=== PATIENT | female | born 1990 | race Caucasian/White ===

== ENCOUNTER 2024-01-10 22:26 | Emergency (ER) | payer OTHER, SELFPAY | END 2024-01-10 22:45 | disposition home or self-care (01) | LOC: ED 22:39 | PROVIDERS: PCP Preventive Medicine Occupational Medicine | DX: Z04.9 Encounter for examination and observation for unspecified reason (principal) ==

== ENCOUNTER 2024-08-27 09:57 | Emergency (ER) | payer BC, SELFPAY ==
--- OUTSIDE RECORDS SUMMARY | 2024-08-27 09:59 | XMS_ITS | Clinical Summary ---
Author Organization [facility] Address [address] [place] [address] Care Team Providers Care Respiratory Care Faculty Name Role Phone Danielle Cui P.A.-C., M.S. Primary Care P eladio Source Comments Patient records contain information from all sites at [facility]. For routine questions regarding patient records, call [phone] during business hours, M-F 8:00 AM - 5:00 PM Central Time. Record requests for emergency care only can be directed to [phone] at any time.[facility] Allergies Active Allergy Reactions Criticality Noted Date Comments Crab Hives (Reselect Reaction) Medium 03/15/2018 Dextromethorphan Hallucinations,He adache,Nausea And Vomiting,Shortnes s of breath (Reselect Reaction),Other (see comments) High 07/27/2015 Heart palpitations Chills Heart palpitations Chills Heart palpitations Chills Heart palpitations Heart palpitations Heart palpitations Chills Heart palpitations Heart palpitations Chills Heart palpitations Patient reports feeling shaky and light headed while taking unknown cold medication. Diagnostic Aids, Otherwise Unspecified Anaphylaxis,Hives (Reselect Reaction) 08/01/2020 Ice/ Cold Gluten GI intolerance,Other (see comments) 10/05/2015 Medications * This document contains information received from the source organization and may not represent a complete record from that organization. EPINEPHrine (EPIPEN) 0.3 mg/0.3 mL injection syringe Inject 0.3 mg intramuscularl y. 8 Active ketoconazole (NIZORAL) 2 % shampoo Apply topically as directed. Apply twice weekly for 2-4 weeks and then as needed 120 mL 2 0 Active vits96/iron fum/folic ( vitamin-ferrous fumarate-FA) 27 mg iron- 800 mcg per tablet Take 1 tablet by mouth daily. Active FLUoxetine (PROzac) 20 mg capsuleIndicati ons:Anxiety,Obs essive Compulsive Disorder Take 3 capsules (60 mg total) by mouth daily. 90 capsule 11 4 10/22/19 25 Active acetaminophen-c odeine (TylenoL #2) 300-15 mg per tablet Take 1 tablet by mouth every 6 (six) hours as needed. 4 Active Active Problems Patient Care Coordination No te Formatting of this note migh t be different from the original. Delivery Plan: IOL scheduled for 10/28. Preadmission Covid test not needed because she had a +Covid test September 06. 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 Antepartum: Last pap: 03/19/2018 Rubella/Varicella status: Immune/immune HPV series complete: Qualify for aspirin: Rhogam: O+ Tdap: Done 08-07-2021 JLW Influenza Vaccine: none this season Covid Vaccine: x2; considering booster; portal message sent PHQ -9 - done 08/07/2021, repeat post 28 week labs - done - WNL = 108 GBS - done - 09/06/2021 - Repeat collected 10/04/2021 - No Growth Education: NOB - completed 03/29/2021 KMU Early- Mid - done 06/11/2021 MTT Late: Done 08-07-2021 JLW Delivery/: Genetic testing at delivery: DVT prophylaxis indicated: PP tests to be ordered: Problem Noted Date Diagnosed Date Section Delivery 10/27/2021 Overview (10/28/2021): The patient was admitted to the [facility] for induction of labor. Her was complicated by COVID-19. Her labor course was induced with vaginal cytotec and augmented with artificial rupture of membranes and IV pitocin, utilizing epidural anesthesia for pain management. Complications of labor included heart rate changes necessitating a section. She had a primary delivery, delivering a liveborn female with weight of . occurred: 10/28/2021 , 5:31 PM Both mother and baby were in stable condition at the conclusion of the procedure. When the patient met appropriate criteria, she was transferred to the floor. The remainder of her course was uncomplicated. She received her care at [facility]. Nausea And Vomiting 10/04/2021 Care And Lactating 05/18/2021 Anxiety 11/18/2018 Overview (10/29/2021): 10/29/21 On Prozac? 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 Growth at 19% and AC at 29% Diagnosed 09/04/21, EFW: 8th percentile, AC<2 percentile - Completed consult with Dr. Gray - Plan for weekly BPP + dopplers2 - Weekly NSTs at [facility] - Weekly provider visit - Growth scan Q3 weeks - Discussed likely delivery at 37 weeks, unless indicated earlier by dopplers or testing 32 Weeks Gestation 09/06/2021 10/15/2021 COVID-19 Infection 04/09/2021 2 Overview (05/15/2021): Received monoclonal antibodies 04/09/21 surveillance and delivery considerations ([facility] COVID 19 and : What Maternal Medicine Subspecialists Need to Know 12.3.21 update): - Advanced level anatomy sonography between 18-20 weeks gestation. - OB Division recommendation for serial growth US q 4 to 6 weeks beginning at 28 weeks. This will be ordered by the patient's primary OB provider. - [facility] OB Division recommendation for weekly surveillance beginning at 37 weeks. This will be ordered by the patient's primary OB provider. - [facility] OB Division recommendation for consideration of delivery at 39-40 weeks. - Plan for COVID booster 90 days after completion of monoclonal antibody therapy Complete Spontaneous 12/02/2019 12/13/2019 Overview (12/02/2019): 12/01: HCG 44 yesterday. Plan to repeat HCG on Thursday at 11 am. Immunizations Immunization Administration Dates Next Due H1N1 Nasal 02/27/2009 HPV, Unspecified 09/09/2019(Deferred: Other - had elsewhere) Influenza Split 01/15/2016,11/22/2014,12/23/2013 Influenza Whole 12/23/2013 Influenza, Injectable, Quadrivalent 06/06/2013 Influenza, Seasonal, Injectable 11/22/2014 Influenza, Unspecified 01/13/2017,01/11/2016 SARS-COV-2 (COVID-19) - PFIZ ER (Discontinued)(12 years or older) 04/17/2020,03/26/2020 Tdap 08/07/2021,04/28/2018 influenza trivalent high dos e (HD)(PF) 01/15/2016 influenza vaccine quad (FLUZONE/FLUARIX) (6 months and older)(PF) 01/08/2023,02/09/2022,01/04/2020,2018,01/12/2018 Family History Medical History Relation Name Comments No Known Problems Father Stroke Father's Brother Richard Colon cancer Maternal Grandfather Teto Cancer Maternal Grandmother Gestational diabetes Mother Maile Melanoma Mother Maile Osteoporosis Mother Maile Skin cancer Mother Maile Other Mother's Sister Mackenzie celiac disea se No Known Problems Paternal Grandfather No Known Problems Paternal Grandmother Alopecia Sister 1 Incompetent cervix Sister 1 No Known Problems Sister 2 No Known Problems Sister 3 Relation Name Status Comments Father Alive Father's Brother Richard Maternal Grandfather Teto Maternal Grandmother Mother Maile Alive Mother's Sister Mackenzie Paternal Grandfather Paternal Grandmother Sister 1 Alive Sister 2 Alive Sister 3 Alive Social History Tobacco Use Types Packs/Day Years Used Date Smoking Tobacco: Never Smokeless Tobacco: Never Tobacco Cessation:Counseling Given: Not Answered Alcohol Use Standard Drinks/Week Comments Not Currently 0 (1 standard drink = 0.6 oz pur e alcohol) [facility] Utilities Answer Date Recorded In the past 12 months has e electric, gas, oil, or water company threatened to shut off services in your home? No 08/12/2023 Humiliation, Afraid, Rape, and Kick questionnair e Answer Date Recorded Within the last year, have y ou been afraid of your partner or ex-partner? No 10/11/2021 Within the last year, have y ou been humiliated or emotionally abused in other ways by your partner or ex-partner? No Within the last year, have y ou been kicked, hit, slapped, or otherwise physically hurt by your partner or ex-partner? No 10/11/2021 Within the last year, have y ou been raped or forced to have any kind of sexual activity by your partner or ex-partner? No 10/11/2021 Social Connection and Isolat ion Panel [NHANES] Answer Date Recorded In a typical week, how many times do you talk on the phone with family, friends, or neighbors? More than three times a week 10/11/2021 How often do you get togethe r with friends or relatives? More than three times a week 10/11/2021 How often do you attend chur or methodist services? Patient declined 10/11/2021 Do you belong to any clubs o r organizations such as uatsdin groups, unions, fraternal or athletic groups, or school groups? Yes 10/11/2021 How often do you attend meet ings of the clubs or organizations you belong to? More than 4 times per year 10/11/2021 Are you , , di vorced, , never , or living with a partner? 10/11/2021 AUDIT-C Answer Date Recorded Q1: How often do you have a drink containing alc ohol? Never 10/11/2021 Average Number of Drinks Not on file 022 Frequency of Binge Drinking Not on file 09/14 Overall Financial Resource Strain (CARDIA) Answe r Date Recorded How hard is it for you to pa y for the very basics like food, housing, medical care, and heating? Not hard at all 10/11/2021 PHQ-2 Answer Date Recorded PHQ-2 Score 1 02/08/2024 [facility] - Occupational Stress Questionnaire Answer Date Recorded Do you feel stress - tense, restless, nervous, or anxious, or unable to sleep at night because your mind is troubled all the time - these days? To some extent 10/11/2021 Exercise Vital Sign Answer Date Recorde d On average, how many days pe r week do you engage in moderate to strenuous exercise (like a brisk walk)? 4 days 08/12/2023 On average, how many minutes do you engage in exercise at this level? 40 min 08/12/2023 Hunger Vital Sign Answer Date Recorded Within the past 12 months, y ou worried that your food would run out before you got the money to buy more. Never true 08/12/19 24 Within the past 12 months, t he food you bought just didn't last and you didn't have money to get more. Never true 08/12/2023 PRAPARE - Transportation Answer Date Re corded In the past 12 months, has l ack of transportation kept you from medical appointments or from getting medications? No 07/15 In the past 12 months, has l ack of transportation kept you from meetings, work, or from getting things needed for daily living? No 08/12/2023 Depression Answer Date Recor ded PHQ-9 Total Score (max 27) 3 02/07 Nutrition Answer Date Recorded On average, how many serving s of fruits and vegetables do you eat per day (serving size is equal to 1 cup or approximately the size of a tennis ball)? 3-5 08/12/2023 Dental Answer Date Recorded Dental: Regular Dentist Yes 05/23/19 21 Employment Answer Date Recorded Employment status Employed and actively working without restrictions 08/12/2023 Housing Stability Answer Date Recorded What is your living situation today? I have a [place] place to live 08/12/2023 Education Answer Date Recorded What is the highest level of school you have completed or the highest degree you have received? 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 on file Not on file Not on file Last Filed Vital Signs Vital Sign Reading Time Taken Comments Blood Pressure 97/67 12/11/2021 2:17 PM CDT Pulse 79 12/11/2021 2:17 PM CDT Temperature 36.6 C (97.8 F) 12/11/2021 2:17 PM CDT Respiratory Rate 15 10/31/2021 8:25 AM CDT Oxygen Saturation 95% 12/11/2021 2:17 PM CDT Inhaled Oxygen Concentration - - Weight 66.7 kg (147 lb 0.8 oz) 12/11/2021 2:05 P M CDT Height 162.5 cm (5' 3.98) 12/11/2021 2:05 PM CD T Body Mass Index 25.26 12/11/2021 2:05 PM CDT Plan of Treatment Health Maintenance Due Date Last Done Comments Hepatitis B Vaccines (1 of 3 - 19+ 3-dose series) 09/14/2011 COVID-19 Vaccine ( - 2023- season) 2023 04/17/2020, 03/26/2020 Influenza Vaccine (#1) 2023 3, 02/09/2022, 01/04/2020, Additional history exists Depression Screening (Annual PHQ-2) 03/16/2024 Cervical/Vaginal Cancer Screening 12/11/2024 12/11/2021, 12/11/2021, 03/19/2018, Additional history exists DTaP,Tdap,and Td Vaccines (3 - Td or Tdap) 08/08/2031 08/07/2021, 04/28/2018 HIV Screening Completed 05/01/2021 Hepatitis C Screening Completed 05/01/2021 HPV Vaccines Aged Out No longer eligi ble based on patient's age to complete this topic IPV Vaccines Aged Out No longer eligi ble based on patient's age to complete this topic Pneumococcal vaccine (0-49 years) Aged Out No longer eligible based on patient's age to complete this topic Procedures Procedure Name Priority Date/Time Associated Diagnosis Comments HPV WITH GENOTYPING, PCR, THINPREP Routine 12/11/2021 2:43 PM CDT HCV AB SCRN , S Routine 05/01/2021 9:18 AM MEAT CARRIER Encounter For Supervision Of Normal Unspecified Trimester HIV-1/-2 AG AND AB SCRN, PLASMA Routine 05/01/2021 9:18 AM MEAT CARRIER Encounter For Supervision Of Normal Unspecified Trimester from Last 3 Months or Most Recently Relevant to Health Maintenance Results * HPV with Genotyping, PCR, ThinPrep (12/11/2021 2:43 PM CDT) Specimen Source Thin Prep Vial, Cervix/Endoc ervix 12/13/2021 11:59 PM CDT DTL HPV High Risk type 16, PCR Negative Negative 12/13/2021 11:59 PM CDT DTL HPV High Risk type 18, PCR Negative Negative 12/13/2021 11:59 PM CDT DTL HPV other High Risk types, PCR Negative Negative 12/13/2021 11:59 PM CDT DTL Comment: The following Other High Risk HPV types were not detected: 31, 33, 35, 39, 45, 51, 52, 56, 58, 59, 66, and 68 This test was ordered in the context of a [facility] SOLAR SALES REPRESENTATIVE AND ASSESSOR Cytology case; this result should be interpreted within the context of the SOLAR SALES REPRESENTATIVE AND ASSESSOR cytology report. Varies 12/11/2021 2:43 PM CDT 12/12/2021 8:23 AM CDT us Jazmine Ledezma M.D., Ph.D. LAB MICROBIOLOGY - GENER AL ORDERABLES Final Result [facility] [address] [place] [address], [facility] DTL [facility] [address] [place] [address] * Hepatitis C Virus Antibody Screen (05/01/2021 9:18 AM MEAT CARRIER) HCV Ab Scrn , S Negative Negative 05/01/2021 1:32 PM MEAT CARRIER [facility] Comment:Noodsi-bi-mwazms rat io is <1.00. Blood (Blood, Venous) 05/01/2021 9:18 AM MEAT CARRIER 05/01/2021 12:21 PM MEAT CARRIER Georgia López M.D. LAB MICROBIOLOGY - BLOOD OR DERABLES Final Result Performing Organization Address [facility]/ZIP Co de Phone Number [facility] [address] [address] [facility] Dept. of Laboratory Medicine and Pathology [address] [place] [address] * HIV-1/-2 Ag and Ab Scrn, Plasma (05/01/2021 9:18 AM MEAT CARRIER) HIV-1/-2 Ag and Ab Scrn, P Negative Negative 05/01/2021 1:10 PM MEAT CARRIER [facility] Comment: Negative result does not rule out HIV infection. If exposure to HIV infection occurred <14 days ago, contact the laboratory to request addition of HIV-1 RNA detection / quantification test (HIVQN). Blood (Blood, Venous) 05/01/2021 9:18 AM MEAT CARRIER 05/01/2021 12:21 PM MEAT CARRIER Georgia López M.D. LAB MICROBIOLOGY - BLOOD OR DERABLES Final Result Performing Organization Address City/[facility]/ZIP Co de Phone Number [facility] [address] [address] [facility] Dept. of Laboratory Medicine and Pathology [address] [place] [id number] from Last 3 Months or Most Recently Relevant to Health Maintenance Insurance [facility] Advance Directives For more information, please contact: [phone] * Full Code (Latest Code Status on File) Date Activated Date Inactivated Comments 10/31/2021 7:54 AM 10/31/2021 4:41 PM Question Answer Comments Full Code: Not Discussed Due to: Not medically appropriate * Full Code Date Activated Date Inactivated Comments 09/06/2021 3:05 PM 09/07/2021 6:18 PM Question Answer Comments Full Code: Not Discussed Due to: Not medically appropriate Care Teams Respiratory Care Faculty Relationship Specialty Start Date End Date Danielle Cui P.A.-C., M.S. [address] [place] [id number] PCP - General Family Medicine 01/10/17
--- OUTSIDE RECORDS SUMMARY | 2024-08-27 09:59 | XMS_ITS | Clinical Summary ---
Author Organization [employer] [facility] [employer] [facility] Address [address] [place] [id number] Care Team Providers Care Cat Wagon Operator Name Role Phone Shay Kline MD Primary Care Provider [phone] Allergies Active Allergy Reactions Criticality Noted Date Comments Dextromethorphan Confusion,Dyspnea ,Hallucinations,H eadache,Nausea And Vomiting,Other - Describe In Comment Field,Respiratory Distress,Dizzines s High 07/27/2015 Heart palpitations Chills Heart palpitations Chills Heart palpitations Heart palpitations Heart palpitations Chills Heart palpitations Heart palpitations Chills Heart palpitations Patient reports feeling shaky and light headed while taking unknown cold medication. Diagnostic Aids, Otherwise Unspecified Anaphylaxis,Hives High 08/01/2020 Ice/ Cold Gluten *Unknown,GI Upset,Nausea Only,Other - Describe In Comment Field Medium 10/09/2014 Stomach issues Shellfish Containing Products Hives High 03/15/2018 Medications FLUoxetine (PROZAC) 20 mg capsule Take 60 mg by mouth. 4 10/22/19 25 Active multivitamin () 27 mg iron- 800 mcg folic Take 1 Tablet by mouth once daily. Active cholecalciferol, Vitamin D3, (Vitamin D-3) 5,000 unit tab tablet Take by mouth once daily. Active ferrous sulfate 325 mg delayed release tabletIndications: Anemia, unspecified type Take 1 Tablet (325 mg) by mouth once daily. 5 Active promethazine 25 mg tabletIndications: Nausea and vomiting during (HC) Take 1 Tablet (25 mg) by mouth every 6 hours if needed for Nausea/Vomi ting. 60 Tablet 5 Active medication order composer Vitamin B6 Active ondansetron 4 mg disintegrating tabletIndications: Nausea and vomiting during (HC) Place 1 Tablet (4 mg) on the tongue every 8 hours if needed for Nausea/Vomi ting. 30 Tablet 5 08/17/19 25 Discontin ued(*Pura ent states no longer taking) Active Problems Problem Noted Date Diagnosed Date Encntr for suprvsn of normal preg, unsp, first t rimester 07/28/2024 Overview (08/25/2024): Primary OB: Screening: Panorama- would like 10w3d, AFP [ ]. Considering carrier screening. 20 wk US: GCT: Problems: Hcgs early on, US 7-8 weeks, 08/02 with f/u 08/03 N&V, vomiting 5-10 times a day, zofran, promethazine. Last threw up all 9 months, was passing out. Feeling better the last 2 days- less vomiting, kept entire dinner down. Intake placed homecare for IV fluids. G1: IUGR and 2nd tri bleeding,/contractions, resolved over night, no further concerns. Of note: sister needed cerclage x2 d/t hx PTB 23 wk Previous x 1: Indication for C/S: emergency CS intolerance. Op note reviewed by surgeon [ ] and confirmed LST. [ ]Delivery plan RCS desired [ ]TOLAC/CS consent given for review [ ] salpingectomy if CS discussed (If hx classical CS [ ] delivery between 36w0d to 37w0d) (If >/= 4 prior CS, early delivery is not recommended. Consider consult with MPP, if considering earlier delivery.) Hx benign nodule on thyroid, never on medications, checks yearly, unsure last. TSH ___ Hx anxiety/OCD, Dr. Mccartney, psychiatrist. Planning to wean prozac to 40 mg. Check in ___, feeling her anxiety will be better after the first US. No therapist. Hx PCOS, Early DM screening: [ ] HgA1c at intake. If <5.7%, do 1hr GCT at 28w. If >/=6.5%, manage as T2DM. If >/= 5.7% but <6.5%, then check fasting glucose >> If <95, do 1hr GCT at 28w. If >/=95 but <126, do 3hr GTT at 28w. If >/=126, then manage as T2DM. If history of GDMA2 in prior [ ] consider 1hr GCT at 20w labs completed - check at 16wks [ ] Needs T&S [ ] Maternal Vaccination: COVID-19 [ ], Flu [ ], RSV [ ] RN- preop/PACU Cervical cancer screening 05/10/2024 Overview (05/10/2024): 04/2024 NIL/HPV negative Plan: HPV based testing in 5 years Anxiety 11/18/2018 Overview (07/28/2024): 10/29/21 On Prozac? Celiac disease 04/03/2016 H/O multiple concussions 05/23/2015 Overview (07/28/2024): Concussions x3 secondary to soccer Rash 11/29/2014 Overview (07/28/2024): See note from 11/29/14 Obsessive-compulsive disorder 04/24/2014 Estimated Date of Delivery Comme nts Yes 03/14/2025 Based on last me nstrual period of 06/07/2024 (Exact Date) Encounters Date Type Department Care Team Description 08/25/2024 11:45 AM CDT Phone Office Visit [facility] [address] [place] [address] Gina Jensen NP Follow Up (OB US f/u) 08/25/2024 Travel 08/24/2024 1:45 PM CDT Ancillary Procedure [facility] [address] [facility] [address] [place] [address] Arrived 08/24/2024 Telephone [facility] [phone] Rach Mack NP Lab (Test cancellation) 08/23/2024 1:00 PM CDT OB Encounter [facility] [address] [facility] [address] [place] [address] Gina Jensen NP Care (11w0d) 08/23/2024 Travel 08/16/2024 11:15 AM CDT OB Encounter [facility] [address] [place] [address] Mari Back MD Care (10w0d) 08/16/2024 Travel 08/15/2024 Telephone [facility] [address] [facility] [address] [place] [address] Rima Reeves PA Abdominal Pain 08/15/2024 Nurse Triage [facility] [address] [facility] [address] [place] [address] Mari Maloney NP 08/13/2024 Nurse Triage [facility] [address] [facility] [address] [place] [address] Mari Maloney NP 08/03/2024 9:30 AM CDT Phone Office Visit [facility] [address] [address] Mari Maloney NP Care (7w4d) 08/03/2024 OB Encounter [facility] [address] [facility] [address] [place] [address] Mari Maloney NP Abstract (Ultrasound update ) 08/03/2024 Telephone [facility] [address] [address] Mari Maloney NP Appointment (Lab only appt) 08/02/2024 3:15 PM CDT Ancillary Procedure [facility] [address] [facility] [address] [place] [address] 08/02/2024 Travel 07/29/2024 Patient Outreach [facility] [address] [facility] [address] [place] [phone] Kierra Sesay RN [facility] (Orders for PIV hydration received ) 07/28/2024 11:00 AM CDT Phone OB Encounter [facility] [address] [place] [address] [address] [place] [address] Rach Mack NP Confirmation ( Intake Phone) 07/28/2024 Orders Only [facility] [address] [place] [address] [address] [place] [address] Rach Mack NP Hyperemesis 07/15/2024 2:15 PM CDT Phone Office Visit [facility] [address] [place] [address] [address] [place] [address] Idalia Butler NP Results ( test results) 07/14/2024 3:35 PM CDT Office Visit [facility] [address] [facility] [address] [place] [address] Trisha Corley MD Throat Problem; Sinus Problem 07/14/2024 11:40 AM CDT Orders Only [facility] [address] [facility] [address] [place] [address] Lab 07/14/2024 Travel 07/12/2024 3:00 PM CDT Orders Only [facility] [address] [facility] [address] [place] [address] Lab 07/12/2024 Travel 07/01/2024 9:23 AM CDT - 07/01/2024 11:59 PM CDT Hospital Encounter Les Anthony MD 07/01/2024 Orders Only [facility] [address] [facility] [address] [place] [address] Les Anthony MD <No scans attached> 07/01/2024 Surgery [facility] [id number] [place] [address] Les Anthony MD LEFT RING FINGER MASS EXCISION 06/01/2024 Transcribe Orders [facility] [place] [address] [place] [address] Les Anthony MD from Last 3 Months Immunizations Immunization Administration Dates Next Due Human Papilloma Virus Vaccin e, Unspecified 09/09/2019(Deferred: Patient Refused) Influenza A (H1N1), Live Intranasal 02/27/2009 Influenza Virus, Unspecified 01/13/2017,01/11/20 16 Influenza, High-dose Inactivated 01/15/2016 Influenza, IIV3 (Age >=3 years) 11/22/2014 Influenza, IIV4 01/08/2023,,01/04/2020,2018,01/12/2018 Influenza, IIV4 (=>6mos) MDV 06/06/2013 Influenza, Whole Virus 12/23/2013 Influenza, split (incl. fahad fied surface antigen) 01/15/2016,11/22/2014,12/23/2013 Td (Age >=7 Years) 03/19/2018(Deferred: Patient Refused) Tdap 08/07/2021,04/28/2018 Family History Medical History Relation Name Comments Cancer-colon Maternal Grandfather Melanoma Mother Diabetes Other 1 Uncle Stroke Other 2 Uncle Incompetent cervix Sister Relation Name Status Comments Maternal Grandfather Mother Other 1 Other 2 Sister Social History Tobacco Use Types Packs/Day Years Used Date Smoking Tobacco: Never Passive Smoke Exposure: Never Tobacco Cessation:Counseling Given: Not Answered Alcohol Use Standard Drinks/Week Comments Not Currently 4 (1 standard drink = 0.6 oz pur e alcohol) PHQ-2 Answer Date Recorded PHQ-2 TOTAL SCORE 2 08/23/2024 Social Connections Answer Date Recorded Do you often feel lonely or isolated from those around you? 0 11/04/2023 Financial Resource Strain Answer Date R ecorded Difficulty of Paying Living Expenses 3 04/16/2024 Difficulty of Paying Living Expenses Not on file 04/16/2024 Food Insecurity Answer Date Recorded Do you worry your food will run out before you are able to buy more? 1 11/04/2023 Transportation Needs Answer Date Record ed Does lack of transportation keep you from medica l appointments? 1 11/04/2023 Does lack of transportation keep you from work, meetings or getting things that you need? 1 11/04/2023 Housing Stability Answer Date Recorded What is your housing situation today? 1 11/04/2023 Utilities Answer Date Recorded Do you have trouble paying f or utilities (for example, heat, electricity, water, phone)? 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 Delivery Location:[facility] ([facility] 03 3 L&D) Current Comments OP note reviewed Low transve rse noted Summary Episode Dates Number of Fetuses Estimated Date of Delivery 07/28/2024 - Present (08/27/2024) 03/14/2025 (set by Mari Maloney NP on 08/03/2024 based on Last Menstrual Period on 06/07/2024 (Exact Date)) Dating Summary Based On EVER GA Diff Last Menstrual Period on 06/07/2024 (Exact Date) 03/14/2025 Working Ultrasound on 08/02/2024 03/18/2025 -4d GA:7w3d Alternate EVER Entry 03/18/2025 -4d Comment:Date entered prior t o episode creation Vitals Pregravid Weight Height TWG (As of 08/27/2024) Pregrav id BMI 68.9 kg (152 lb) 4.63 kg (10 lb 3.2 oz) Notes Progress Notes - OB Encounte r - 08/23/2024 - GA:11w0d 08/23/2024 - 11w0d - Gina Reese NP 11w0d Feeling well. Here today for FHT check and lab work. Patient has celiac disease and was exposed to gluten on Thursday night. Had significant GI upset, including bad stomach pains and diarrhea. Reported some brown vaginal spotting last week with wiping. She also noticed brighter red spotting after intercourse. She has not had any bleeding in 4-5 days. BSUS confirms FHT today. Counseled and desires Panorama- labs drawn today. Plan repeat viability US in the setting of prolonged spotting. Gina Jensen NP .................... 08/23/2024 1:59 PM Progress Notes - OB Encounte r - 08/16/2024 - GA:10w0d 08/16/2024 - wd - Mari Back MD 10w0d Longstanding celiac since first grade. Exposed to gluten at a restaurant - significant abdominal pain since Thursday night. Helped with heating pad. Brown spotting. Limited bedside US confirms cardiac activity and movement. Progress Notes - OB Encounte r - 08/03/2024 - GA:8w1d 08/03/2024 - 8w1d - Mari Robertson NP Ultrasound dating update. Mari Maloney NP .................... 08/03/2024 10:01 AM Progress Notes - Phone OB En counter - 07/28/2024 - GA:7w2d 07/28/2024 - 7w2d - Rach Mack NP History & Physical - Confirmation - TELEPHONE VISIT HPI: Jenny Steel is a 33 y.o. female, called today and phone visit performed for intake. Patient's last menstrual period was 06/07/2024 (exact date). Menses were mostly regular- 30 days Symptoms: n&v (see above), increase in discharge. Denies bleeding. Since her LMP she has used vit D, prozac, iron, PNV (does not have iron in it) Has not used zofran Denies recent travel to any areas affected by the zika virus. History of varicella or vaccine: had chicken pox Dating: Patient's last menstrual period was 06/07/2024 (exact date). Dating ultrasound ordered. Gestational age today is 6w5d, Estimated Date of Delivery: 03/18/25. Testing: Genetic Risks noted on intake form: Yes- Planned: Cystic Fibrosis and SMA carrier testing were discussed and she is considering them. Aneuploidy risk and testing options were discussed and she would like to proceed with the following tests: Panorama and AFP -Panorama, AFP Risk Factors: Primary OB: Screening: Panorama- would like 10w3d, AFP [ ]. Considering carrier screening. 20 wk US: GCT: Problems: Hcgs early on, US 7-8 weeks, 08/02 with f/u 08/03 N&V, vomiting 5-10 times a day, zofran, promethazine. Last threw up all 9 months, was passing out. Feeling better the last 2 days- less vomiting, kept entire dinner down. Intake placed homecare for IV fluids. G1: IUGR and 2nd tri bleeding,/contractions, resolved over night, no further concerns. Of note: sister needed cerclage x2 d/t hx PTB 23 wk Previous x 1: Indication for C/S: emergency CS intolerance. Op note reviewed by surgeon [ ] and confirmed LST. [ ]Delivery plan RCS desired [ ]TOLAC/CS consent given for review [ ] salpingectomy if CS discussed (If hx classical CS [ ] delivery between 36w0d to 37w0d) (If >/= 4 prior CS, early delivery is not recommended. Consider consult with MPP, if considering earlier delivery.) Hx benign nodule on thyroid, never on medications, checks yearly, unsure last. TSH ___ Hx anxiety/OCD, Dr. Mccartney, psychiatrist. Planning to wean prozac to 40 mg. Check in ___ . No therapist. Hx PCOS, Early DM screening: [ ] HgA1c at intake. If <5.7%, do 1hr GCT at 28w. If >/=6.5%, manage as T2DM. If >/= 5.7% but <6.5%, then check fasting glucose >> If <95, do 1hr GCT at 28w. If >/=95 but <126, do 3hr GTT at 28w. If >/=126, then manage as T2DM. If history of GDMA2 in prior [ ] consider 1hr GCT at 20w labs completed - check at 16wks [ ] Maternal Vaccination: COVID-19 [ ], Flu [ ], RSV [ ] RN- preop/PACU OB History Para Term AB Living 3 1 1 0 1 1 SAB IAB Ectopic Multiple Live Births 1 0 0 1 # Outcome Date GA Lbr Monico/2nd Weight Sex Type Anes PTL Lv 3 Current 2 Term 10/28/21 39w4d 2.86 kg (6 lb 4.9 oz) F CS-LTranv EPI AISHWARYA 1 SAB 12/04/19 5w0d FD Comments: Early biochemical loss Obstetric Comments OP note reviewed Low transverse noted ACTIVE PROBLEMS: Patient Active Problem List Diagnosis Code Cervical cancer screening Z12.4 PAST MEDICAL HISTORY: Past Medical History: . Date Anxiety Broken bones 03/16/2000 Celiac disease (HC) Chickenpox 03/16/1999 Dysmenorrhea 10/11/2012 low back pain Neck pain related to soccer PCOS (polycystic ovarian syndrome) 2019 PAST SURGICAL HISTORY: Past Surgical History: . Laterality Date KNEE SURGERY 03/16/2008 [facility]ria LEG SURGERY [facility] THYROID SURGERY 03/16/2006 benign nodule was [facility] IMMUNIZATIONS: Immunization History Administered Date(s) Administered COVID-19 vaccine ([facility] 30mcg/0.3mL) PF, MDV 03/26/2020, 04/17/2020 Influenza A (H1N1), Live Intranasal 02/27/2009 Influenza Virus, Unspecified 01/11/2016, 01/13/2017 Influenza, High-dose Inactivated 01/15/2016 Influenza, IIV3 (Age >=3 years) 11/22/2014 Influenza, IIV4 01/12/2018, 01/10/2019, 01/04/2020, 02/08/2022, 01/08/2023 Influenza, IIV4 (=>6mos) MDV 06/06/2013 Influenza, Whole Virus 12/23/2013 Influenza, split (incl. purified surface antigen) 12/23/2013, 11/22/2014, 01/15/2016 Tdap 04/28/2018, 08/07/2021 CURRENT MEDICATIONS: Current Outpatient Medications Medication Sig Dispense Refill cholecalciferol, Vitamin D3, (Vitamin D-3) 5,000 unit tab tablet Take by mouth once daily. ferrous sulfate 325 mg delayed release tablet Take 1 Tablet (325 mg) by mouth once daily. FLUoxetine (PROZAC) 20 mg capsule Take 60 mg by mouth. ondansetron [address] 1 Tablet (4 mg) on the tongue every 8 hours if needed for Nausea/Vomiting. 30 Tablet 0 multivitamin () 27 mg iron- 800 mcg folic Take 1 Tablet by mouth once daily. promethazine 25 mg tablet Take 1 Tablet (25 mg) by mouth every 6 hours if needed for Nausea/Vomiting. 60 Tablet 0 No current facility-administered medications for this visit. Medications have been reviewed by me and are current to the best of my knowledge and ability. 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 OBJECTIVE: No vitals or exam required for Telephone Visit. Patient talking easily and coherently in full sentences with no labored breathing ASSESSMENT/PLAN: ICD-10-CM 1. Encounter for supervision of normal first , first trimester (HC) Z34.01 TSH WITH REFLEX ANTI HIV 1/2 CBC W PLT NO DIFF HBSAG (HBS) ANTI HCV RUBELLA IMMUNE STATUS TREPONEMA PALLIDUM TYPE & SCREEN URINE CULTURE HEMOGLOBIN A1C 2. Nausea and vomiting during (HC) O21.9 AMB CONSULT TO OB HOME CARE/MOTHER Patient's BMI: 26. Recommended wt gain in lbs: 15-25. --Resources will be given to patient at next visit. Discussed [employer] nai available for download to smart phone or tablet. --Reviewed topics including diet, exercise, caffeine intake, handling of cat litter, toxic substances, daily vitamins, safe medications, child classes, and regular exams. --Discussed genetic screening options - considering and advised to check coverage. --Discussed care with [facility] and delivery at [facility]. Plan to schedule ultrasound and Initial OB visit with MD at 12 weeks gestation. She was encouraged to call the office with any questions or concerns. Hgb ELP not indicated Baseline preeclampsia labs not indicated Medications: ASA for preeclampsia prophylaxis not indicated Early a1c indicated Rach Mack NP .................... 07/28/2024 11:01 AM As the provider for this telephone service, I attest that I introduced myself to the patient, provided my credentials, disclosed my location, and determine that based on a review of the patient's chart and/or discussion with members of the patient's treatment team, a telephone visit is an appropriate and effective means of providing this service. The patient and I mutually agree that this visit is appropriate for the telephone as well. Originating site: [facility] Distant site: [facility] Telephone start time: 11:01 AM Telephone end time: 12:15 PM Last Filed Vital Signs Vital Sign Reading Time Taken Comments Blood Pressure 90/60 08/23/2024 1:06 PM CDT Pulse 100 08/23/2024 1:06 PM CDT Temperature 36.4 C (97.6 F) 07/14/2024 3:38 PM CDT Respiratory Rate 20 07/14/2024 3:38 PM CDT Oxygen Saturation 95% 07/14/2024 3:38 PM CDT Inhaled Oxygen Concentration - - Weight 73.6 kg (162 lb 3.2 oz) 08/23/2024 1:06 P M CDT Height 160 cm (5' 3) 04/26/2024 10:40 AM DIRECTOR EXPERIMENTAL MEDICINE Body Mass Index 28.73 04/26/2024 10:40 AM DIRECTOR EXPERIMENTAL MEDICINE Plan of Treatment Upcoming Encounters Date Type Department Care Team (Late st Contact Info) Description 09/06/2024 1:00 PM CDT OB Encounter [facility] [address] [facility] [address] [place] [address] MD [address] [facility] [address] [place] [address] Health Maintenance Due Date Last Done Comments Hepatitis B series for 19+ (1 of 3 - 19+ 3-dose series) 09/14/2011 COVID-19 vaccine series ( - 2023- season) 2023 04/17/2020, 03/26/2020 Influenza Vaccine (Season Ended) 2024 01/08/2023, 02/08/2022, 01/04/2020, Additional history exists RSV vaccine for adults or (1 - Risk 1-dose series) 01/17/2025 BMI (ht and wt on same day) for age 18+ 04/26/2025 04/26/2024, 11/17/2023 Depression screening for age 12+ 08/23/2025 08/23/2024, 04/26/2024 Pap test for age 21-65 04/26/2029 , 04/26/2024, 10/03/2013 Tetanus booster 08/08/2031 08/07/2021, 04/28/2018 Tdap Completed 08/07/2021, 04/28/2018 HIV for age 15-65 Completed 08/23/2024 Hepatitis C screening for age 18-79 Completed 08/23/2024 Pneumococcal series for age 6-49 Aged Out No longer eligible based on patient's age to complete this topic Procedures Procedure Name Priority Date/Time Associated Diagnosis Comments US OB 1ST TRI SINGLE TA Routine 08/24/2024 1:49 PM CDT Encounter for supervision of other normal in first trimester (HC) URINE CULTURE Routine 08/23/2024 3:50 PM CDT Encounter for supervision of normal first , first trimester (HC) HEMOGLOBIN A1C Routine 08/23/2024 1:57 PM CDT RUBELLA IMMUNE STATUS Routine 08/23/2024 1:57 PM CDT Encounter for supervision of normal first , first trimester (HC) ANTI HCV Routine 08/23/2024 1:57 PM CDT Encounter for supervision of normal first , first trimester (HC) CBC W PLT NO DIFF Routine 08/23/2024 1:5 7 PM CDT Encounter for supervision of normal first , first trimester (HC) HBSAG (HBS) Routine 08/23/2024 1:57 PM CDT Encounter for supervision of normal first , first trimester (HC) ANTI HIV 1/2 Routine 08/23/2024 1:57 PM CDT Encounter for supervision of normal first , first trimester (HC) TSH WITH REFLEX Routine 08/23/2024 1:57 PM CDT Encounter for supervision of normal first , first trimester (HC) TREPONEMA PALLIDUM Routine 08/23/2024 1: 55 PM CDT Encounter for supervision of normal first , first trimester (HC) US OB ANY TRI TV Routine 08/02/2024 3:39 PM CDT Unsure of LMP (last menstrual period) as reason for ultrasound scan (HC) THROAT RAPID STREP ONLY CLINIC Routine 07/14/2024 4:13 PM CDT Sore throat STREP A PCR Routine 07/14/2024 4:05 PM CDT Sore throat HCG BETA QUANT, STAT 07/14/2024 11:52 AM CDT Unconfirmed Vaginal bleeding HCG BETA QUANT, STAT 07/12/2024 3:04 PM CDT Unconfirmed Vaginal bleeding HPV HIGH RISK Routine 04/26/2024 10:30 AM DIRECTOR EXPERIMENTAL MEDICINE Screening for cervical cancer SURGICAL PROCEDURE (TYPE PROCEDURE DESCRIPTION BELOW) Ganglion cyst of flexor tendon sheath of finger of left hand from Last 3 Months or Most Recently Relevant to Health Maintenance Results * US OB 1ST TRI SINGLE TA (08/24/2024 1:49 PM CDT) Anatomical Region Laterality Modality , 1ST TRIMESTER Ultrasound Impressions 08/24/2024 4:06 PM CDT 1. Bolanos, viable, intrauterine . 2. Ultrasound EDC is 03/14/2025 with a gestational age of 11 weeks 1 days. 3. No adnexal masses are seen. Pia Gonzalez, 08/24/2024 4:05 PM [employer] [facility] [address] [facility] [address] Narrative 08/24/2024 4:06 PM CDT Table formatting from the original result was not included. For Patients: Results are automatically released to your [facility] [employer] [facility]) account once available, in compliance with federal regulations. This means that you may see your results before your provider has had a chance to review them. Please allow 2-3 business days for your provider to comment on the results. Early Ultrasound Date of exam: 08/24/2024 Indication for exam: 1. Encounter for supervision of other normal in first trimester (HC) Requesting Provider: Gina Jensen NP TECHNIQUE: Transabdominal scan was performed. Transvaginal scan was not performed. FINDINGS: The uterus is normal size. The myometrium is homogeneous. There are no myomas noted. The right ovary is normal in appearance. The left ovary is normal in appearance. Free fluid in the cul de sac: none There is a single, intrauterine . The crown-rump length is 4.1 cm. These measurements correspond to a 11 week 1 day gestation with an EDC of 03/14/2025. The yolk sac is identified, appears normal, and measures 4.3 mm. heart activity is present with a rate of 161 beats per minute. Gina Jensen NP US Final Res ult * URINE CULTURE (08/23/2024 3:50 PM CDT) CULTURE <10,000 CFU/mL multiple organisms 08/25/2024 2:24 PM CDT [facility] [employer] LABORATORY-[facility] TRAL LABORATORY Urine URINE SPECIMEN / Unknown Non-Blood / Unknown 08/23/2024 3:50 PM CDT 08/23/2024 3:50 PM CDT Rach Mack NP MICROBIOLOGY Shasha l Result [facility] [address] [place] [address], * HEMOGLOBIN A1C (08/23/2024 1:57 PM CDT) HEMOGLOBIN A1C 5.4 <5.7 % [facility] Comment: For the purpose of screening for the presence of diabetes: <5.7% Consistent with the absence of diabetes 5.7-6.4% Consistent with increased risk for diabetes (prediabetes) > or =6.5% Consistent with diabetes This assay result is consistent with a decreased risk of diabetes. Currently, no consensus exists regarding use of hemoglobin A1c for diagnosis of diabetes in children. According to [place] Diabetes Association (ADA) guidelines, hemoglobin A1c <7.0% represents optimal control in non- diabetic patients. Different metrics may apply to specific patient populations. Standards of Medical Care in Diabetes(ADA). 08/23/2024 1:57 PM CDT 08/23/2024 1:58 PM CDT [facility] FIBER TECHNOLOGIST CHEMISTRY Shasha l Result Performing Organization Address [facility] Co de Phone Number Evolita [facility] [address] [place] [address], [facility] [address] [place] [address] * TSH WITH REFLEX (08/23/2024 1:57 PM CDT) Pathologist [facility] TSH W/REFLEX TO FT4 0.63 mIU/L [employer] Comment: Reference Range > or = 20 Years 0.40-4.50 Ranges First trimester 0.26-2.66 Second trimester 0.55-2.73 Third trimester 0.43-2.91 Blood BLOOD SPECIMEN / Unknown 08/23/2024 1:57 PM CDT 08/23/2024 1:58 PM CDT [facility] Erin [facility] FIBER TECHNOLOGIST CHEMISTRY Shasha l Result Performing Organization Address [facility]/ZIP Co de Phone Number Evolita [facility] [address] [facility] [place] [address], [facility] [address] [place] [address] * RUBELLA IMMUNE STATUS (08/23/2024 1:57 PM CDT) RUBELLA AB (IGG), IMMUNE STATUS 2.11 Index [facility] Comment: Index Interpretation ----- <0.90 Not consistent with immunity 0.90-0.99 Equivocal > or = 1.00 Consistent with immunity The presence of rubella IgG antibody suggests immunization or past or current infection with rubella virus. Blood BLOOD SPECIMEN / Unknown 08/23/2024 1:57 PM CDT 08/23/2024 1:58 PM CDT [facility] FIBER TECHNOLOGIST SEND OUTS Shasha l Result Performing Organization Address [facility] de Phone Number Evolita [facility] [address] [place] [address], [facility] [address] [place] [address] * HBSAG (HBS) (08/23/2024 1:57 PM CDT) HEPATITIS B SURFACE ANTIGEN NON-REACTI VE NON-REACTI VE [facility] [place] Comment: For additional information, please refer to http://education.SocialCompare/faq/VWP075 (This link is being provided for informational/ educational purposes only.) Blood BLOOD SPECIMEN / Unknown 08/23/2024 1:57 PM CDT 08/23/2024 1:58 PM CDT [facility] FIBER TECHNOLOGIST SEND OUTS Shasha l Result Performing Organization Address [facility] Co de Phone Number Evolita [facility] [address] [place] [address], [facility] [address] [place] [address] * ANTI HCV (08/23/2024 1:57 PM CDT) HEPATITIS C ANTIBODY NON-REACTI VE NON-REACT ROBERT [facility] [place] Comment: HCV antibody was non-reactive. There is no laboratory evidence of HCV infection. In most cases, no further action is required. However, if recent HCV exposure is suspected, a test for HCV RNA (test code 66130) is suggested. For additional information please refer to http://education.SocialCompare/faq/IXL21g7 (This link is being provided for informational/ educational purposes only.) Blood BLOOD SPECIMEN / Unknown 08/23/2024 1:57 PM CDT 08/23/2024 1:58 PM CDT Rach Mack FIBER TECHNOLOGIST SEND OUTS Shasha l Result Evolita [facility] [address] [place] [address], [facility] [address] [place] [address] * CBC W PLT NO DIFF (08/23/2024 1:57 PM CDT) Pathologist [facility] WHITE BLOOD CELL COUNT 10.1 3.8 - 10.8 Thousand/u L [facility] [place] RED BLOOD CELL COUNT 4.10 3.80 - 5.10 Million/uL [facility] [place] HEMOGLOBIN 12.3 11.7 - 15.5 g/dL [facility] [place] HEMATOCRIT 37.7 35.0 - 45.0 % [facility] [place] MCV 92.0 80.0 - 100.0 fL [facility] [place] MCH 30.0 27.0 - 33.0 pg [facility] MCHC 32.6 32.0 - 36.0 g/dL [facility] [place] Comment: For adults, a slight decrease in the calculated MCHC value (in the range of 30 to 32 g/dL) is most likely not clinically significant; however, it should be interpreted with caution in correlation with other red cell parameters and the patient's clinical condition. RDW 13.3 11.0 - 15.0 % [facility] [place] PLATELET COUNT 262 140 - 400 Thousand/u L [facility] [place] MPV 11.0 7.5 - 12.5 fL [facility] Blood BLOOD SPECIMEN / Unknown 08/23/2024 1:57 PM CDT 08/23/2024 1:58 PM CDT [facility] FIBER TECHNOLOGIST HEMATOLOGY Shasha l Result Evolita [facility] [address] [facility] [employer] [place] [address], [facility] [address] [place] [address] * ANTI HIV 1/2 (08/23/2024 1:57 PM CDT) [facility] HIV AG/AB, 4TH GEN NON-REACT ROBERT NON-REACT ROBERT [facility] [place] Comment: HIV-1 antigen and HIV-1/HIV-2 antibodies were not detected. There is no laboratory evidence of HIV infection. PLEASE NOTE: This information has been disclosed to you from records whose confidentiality may be protected by state law. If your state requires such protection, then the state law prohibits you from making any further disclosure of the information without the specific written consent of the person to whom it pertains, or as otherwise permitted by law. A general authorization for the release of medical or other information is NOT sufficient for this purpose. For additional information please refer to http://education.Ticket Mavrix.[employer]/faq/ALX176 (This link is being provided for informational/ educational purposes only.) The performance of this assay has not been clinically validated in patients less than 2 years old. Blood BLOOD SPECIMEN / Unknown 08/23/2024 1:57 PM CDT 08/23/2024 1:58 PM CDT Rach Mack FIBER TECHNOLOGIST SEND OUTS Shasha l Result Performing Organization Address [facility]/State/ZIP Co de Phone Number Evolita [facility] [address] [employer] [address], [place] [phone] [facility] [address] [place] [address] * TREPONEMA PALLIDUM (08/23/2024 1:55 PM CDT) TREPONEMA PALLIDUM Non-Reacti ve Non-Reacti ve 08/23/2024 10:53 PM CDT [facility] Blood BLOOD SPECIMEN / Unknown [facility] / Unknown 08/23/2024 1:55 PM CDT 08/23/2024 1:55 PM CDT us Rach Mack FIBER TECHNOLOGIST SEND OUTS Shasha rousseau Result [facility] [address] [place] [address], [place] * US OB ANY TRI TV (08/02/2024 3:39 PM CDT) Anatomical Region Laterality Modality , 2or 3 TRIMESTER, 1ST TRIMESTER Ultrasound Impressions 08/02/2024 3:46 PM CDT [place]anos intrauterine with cardiac activity. Ultrasound EDC is 03/18/2025 with a gestational age of 7 weeks 3 days. No adnexal masses are seen. Anitha Elder MD 08/02/2024 3:45 PM [facility] [address] [facility] [address] Narrative 08/02/2024 3:46 PM CDT Table formatting from the original result was not included. For Patients: Results are automatically released to your [facility] [employer]) account once available, in compliance with federal regulations. This means that you may see your results before your provider has had a chance to review them. Please allow 2-3 business days for your provider to comment on the results. Early Ultrasound Date of exam: 08/02/2024 Indication for exam: 1. Unsure of LMP (last menstrual period) as reason for ultrasound scan (HC) Requesting Provider: Dilcia Lane MD TECHNIQUE: Transabdominal scan was not performed. Transvaginal scan was performed. FINDINGS: The uterus is normal size. The myometrium is homogeneous. There are no myomas noted. The right ovary is normal in appearance. It contains a corpus luteal cyst that measures 1.7 X 1.7 X 1.2 cm. The left ovary is normal in appearance. Free fluid in the cul de sac: none There is a single, intrauterine . The crown-rump length is 1.2 cm. These measurements correspond to a 7 week 3 day gestation with an EDC of 03/18/2025. The yolk sac is identified, appears normal, and measures 3.1 mm. cardiac activity is present with a rate of 139 beats per minute. Dilcia Lane MD US Final Result * THROAT RAPID STREP ONLY CLINIC (07/14/2024 4:13 PM CDT) [facility] POC, GROUP A STREP NOT DETECTED NOT DETECTED [facility] ( Comment: The [place] [employer] recommends that a throat culture be performed if a rapid group A streptococcus assay yields a negative result. [facility] recommends Streptococcus, Group A culture. Throat SPECIMEN FROM THROAT / Unknown 07/14/2024 4:13 PM CDT 07/14/2024 4:13 PM CDT Trisha Corley MD MICROBIOLOGY Final Result [facility] [address] [place] [address], [facility] ( [address] [place] [address] * STREP A PCR (07/14/2024 4:05 PM CDT) Pathologist [facility] GROUP A STREP Negative 07/15/2024 1:08 AM CDT [facility] Throat SPECIMEN FROM THROAT / Unknown Non-Blood / Unknown 07/14/2024 4:05 PM CDT 07/14/2024 4:05 PM CDT Trisha Corley MD MICROBIOLOGY Final Result Performing Organization Address [facility] Co de Phone Number [facility] [address] [place] [address], [place] * STAT hCG Beta Quant, Serum (07/14/2024 11:52 AM CDT) Only the most recent of2 resultswithin the time period is included. HCG BETA QUANT,PREGNANC Y 1,134 mIU/mL 07/14/2024 4:22 PM CDT [facility] Blood BLOOD SPECIMEN / Unknown [facility] / Unknown 07/14/2024 11:52 AM CDT 07/14/2024 11:52 AM CDT Narrative [facility] - 07/14/2024 4:22 PM CDT Expected Value for Healthy Non- premenopausal women <5.3mIU/mL FOR GESTATIONAL ASSESSMENT-See Range Table Below Weeks of gestation hCG mIU/mL 3 weeks gestation (5.8 - 71.2) 4 weeks gestation (9.5 - 750) 5 weeks gestation (217 - 7138) 6 weeks gestation (158 - 31,795) 7 weeks gestation (3,697 - 163,563) 8 weeks gestation (32,065 - 149,571) 9 weeks gestation (63,803 - 151,410) 10 weeks gestation (46,509 - 186,977) 12 weeks gestation (27,832 - 210,612) 14 weeks gestation (13,950 - 62,530) 15 weeks gestation (12,039 - 70,971) 16 weeks gestation (9,040 - 56,451) 17 weeks gestation (8,175 - 55,868) 18 weeks gestation (8,099 - 58,176) Biotin supplements may cause clinically significant interference for this test assay. If interference is suspected, it is strongly recommended that biotin is discontinued for at least one week prior to retesting. Dilcia Lane MD CHEMISTRY Final Result Performing Organization Address [facility]/ZIP Co de Phone Number [facility] [address] [place] [address], [place] * HPV HIGH RISK (04/26/2024 10:30 AM DIRECTOR EXPERIMENTAL MEDICINE) TYPE 16 Negative Negative 04/29/2024 2:54 PM DIRECTOR EXPERIMENTAL MEDICINE [facility] LAB[facility] TYPE 18 Negative Negative 04/29/2024 2:54 PM DIRECTOR EXPERIMENTAL MEDICINE [facility] TRA LABORATORY OTHER HIGH RISK TYPES Negative Negative 04/29/2024 2:54 PM DIRECTOR EXPERIMENTAL MEDICINE [facility] TRA LABORATORY Other (Cervical/Vagina l) Non-Blood / Unknown 04/26/2024 10:30 AM DIRECTOR EXPERIMENTAL MEDICINE 04/27/2024 1:01 PM DIRECTOR EXPERIMENTAL MEDICINE Narrative [facility] - 04/29/2024 2:54 PM DIRECTOR EXPERIMENTAL MEDICINE HPV types 16, 18, 31, 33, 35, 39, 45, 51, 52, 56, 58, 59, 66 and 68 DNA were undetectable or below the pre-set threshold. Methodology: [employer] Sherri [address] MD MICROBIOLOGY Final Result [facility] [address] [place] [address], from Last 3 Months or Most Recently Relevant to Health Maintenance Insurance [place] [address] [place] [address] Care Teams Cat Wagon Operator Relationship Specialty Start Date End Date Shay Kline MD PCP - General 05/28/09
--- OUTSIDE RECORDS SUMMARY | 2024-08-27 09:59 | XMS_ITS | Clinical Summary ---
Author Organization [facility] Address [address] [place] [address] Care Team Providers Care Diesel Roller Operator Name Role Phone Clinic, [facility] Primary Care Provider [phone] Allergies Active Allergy Reactions Criticality Noted Date Comments Crab Extract Hives Medium 03/15/2018 Dextromethorphan Other (See Comments),Headache,Naus ea and Vomiting,Shortness Of Breath High 11/13/2015 Heart palpitations Chills Heart palpitations Heart palpitations Heart palpitations Chills Gluten Meal GI Disturbance,Other (See Comments) Medium 10/05/2015 Stomach issues Seafood Hives High 03/15/2018 Medications amoxicillin-clavu lanate (AUGMENTIN) 875-125 MG tablet Take 1 tablet by mouth 2 times daily 04/07/2022 Active Vit-Fe Fumarate-FA ( MULTIVITAMIN W/IRON) 27-0.8 MG tablet Take 1 tablet by mouth daily Active Active Problems No known active problems Social History Tobacco Use Types Packs/Day Years Used Date Smoking Tobacco: Never Passive Smoke Exposure: Never Smokeless Tobacco: Never Tobacco Cessation:Counseling Given: Not Answered Adolescent Education Answer Date Record ed Getting School Help Needed Not on file 12/06 Comments No Sex and Gender Information Value Date Recorded Sex Assigned at Not on file Legal Sex Female 4:05 PM TRANSLATOR AND INTERPRETER Gender Identity Not on file Sexual Orientation Not on file Last Filed Vital Signs Vital Sign Reading Time Taken Comments Blood Pressure 104/68 04/12/2022 4:43 PM TRANSLATOR AND INTERPRETER Pulse 82 04/12/2022 4:43 PM TRANSLATOR AND INTERPRETER Temperature 36.8 C (98.2 F) 04/12/2022 4:43 PM TRANSLATOR AND INTERPRETER Respiratory Rate 16 04/12/2022 4:43 PM TRANSLATOR AND INTERPRETER Oxygen Saturation 98% 04/12/2022 4:43 PM TRANSLATOR AND INTERPRETER Inhaled Oxygen Concentration - - Weight - - Height - - Body Mass Index - - Plan of Treatment Health Maintenance Due Date Last Done Comments ADVANCE CARE PLANNING 1992 ANNUAL REVIEW OF HM ORDERS 1992 YEARLY PREVENTIVE VISIT 09/14/1995 HIV SCREENING 09/14/2007 HEPATITIS C SCREENING 2010 HEPATITIS B VACCINE (1 of 3 - 19+ 3-dose series) 09/14/2011 PAP 2013 COVID-19 VACCINE (3 - 2023- season) 2023 04/17/2020, 03/26/2020 PHQ-2 (once per calendar year) 2024 INFLUENZA VACCINE (Season Ended) 2024 02/08/2022, 01/04/2020, 01/10/2019, Additional history exists DTAP/TDAP/TD VACCINE (3 - Td or Tdap) 08/08/2031 08/07/2021, 04/28/2018 ZOSTER VACCINE (1 of 2) 2042 HPV VACCINE Aged Out No longer eligi ble based on patient's age to complete this topic MENINGITIS VACCINE Aged Out No longer eligible based on patient's age to complete this topic PNEUMOCOCCAL VACCINE: PEDIATRICS (0 to 5 YEARS) AND AT-RISK PATIENTS (6 to 49 YEARS) Aged Out No longer eligible based on patient's age to complete this topic Insurance [employer] Care Teams Diesel Roller Operator Relationship Specialty Start Date End Date Clinic, [facility] [address] [place] [address] PCP - General 04/12/22
[2024-08-27 10:04] VITALS: BP 112/72; PULSE 96; RESP 20; TEMP 36.6; O2SAT 98; BMI 27.6
--- NOTE | 2024-08-27 10:45 | ED.ABDPAIN ---
HPI - Abdominal Pain General Chief Complaint: Abdominal Pain Stated Complaint: 11.5 weeks , intense pain Time Seen by Provider: 08/27/24 10:01 History of Present Illness HPI narrative: This 33-year-old female comes in stating she had abdominal pain last evening. She states that the pain was very intense at 10/10 in severity and lasted for about an hour. The pain seemed to come and go during that time. Since then she has not had any pain. She reports that she is 11 and half weeks . She comes in this morning just wanting to be sure that her is okay. She arrives here with normal vital signs. She has not had any vaginal bleeding. Related Data Allergies Allergy/AdvReac Type Severity Reaction Status Date / Time crab Allergy Severe Anaphylaxis Verified 08/27/24 10:03 dextromethorphan AdvReac Hallucinati Verified 08/27/24 10:03 ng gluten AdvReac Verified 08/27/24 10:03 Review of Systems Status of ROS Reports: 10 or more systems reviewed and unremarkable except as noted in History and below Narrative Constitutional: No fevers, no weight gain or loss. Eyes: No discharge. No vision changes. HENT: No congestion, no sore throat, no ear pain. Cardiovascular: No chest pain, no palpitations. Respiratory: No shortness of breath, no wheezes, no cough. Gastrointestinal: No vomiting, no diarrhea. Abdominal pain as described above. Genitourinary: No dysuria, no hematuria. Musculoskeletal: Normal range of motion. Skin: No rashes, no pruritis. Neurological: No dizziness, weakness, sensory change, speech change. Endo/Heme/Allergies: No bruising or bleeding. No polydipsia. Pysch: no suicidality, no anxiety, no insomnia. All other systems reviewed and are negative. Exam Narrative: Exam Narrative: Constitutional: Well-developed, well-nourished, no acute distress. HEENT: Normocephalic, atraumatic. Neck: Normal range of motion. Nontender. Supple. Heart: Regular. No murmurs. Normal rate. Intact distal pulses. Lungs: Clear to auscultation. No chest discomfort. No wheezes, rhonchi, or rales. Abdomen: Normal bowel sounds. Nontender. No rebound tenderness. Gravid. Genitalia: Deferred. Back: No midline tenderness. Normal range of motion. Extremities: Normal range of motion. No injury. Skin: Intact. No rash. Warm. No erythema or pallor. Neurologic: No altered sensation. No weakness. Alert and oriented. Psychiatric: No suicidality. No anxiety or depression. No insomnia. Nursing notes and vitals signs are reviewed. Const: Vital Signs, click to edit/add: Vital Signs - 24 hr 08/27/24 10:04 Temperature 98 F Pulse Rate [Pulse Oximeter] 96 Respiratory Rate 20 Blood Pressure [Ri ght Upper Arm] 112/72 Pulse Oximetry 98 Oxygen Delivery Me thod Room Air Course Vital Signs Vital signs: Initial Vital Signs Temperature 98 F 08/27/24 10:04 Temperature Source Temporal Artery Scan 08/27/24 10:04 Pulse Rate 96 08/27/24 10:04 Respiratory Rate 20 08/27/24 10:04 Blood Pressure 112/72 08/27/24 10:04 Blood Pressure Mean 85 08/27/24 10:04 Pulse Oximetry 98 08/27/24 10:04 Oxygen Delivery Method Room Air 08/27/24 10:04 Vital Signs Temperature 98 F 08/27/24 10:04 Pulse Rate 96 08/27/24 10:04 Respiratory Rate 20 08/27/24 10:04 Blood Pressure 112/72 08/27/24 10:04 Pulse Oximetry 98 08/27/24 10:04 Oxygen Delivery Method Room Air 08/27/24 10:04 Temperature 98 F 08/27/24 10:04 Pulse Rate 96 08/27/24 10:04 Respiratory Rate 20 08/27/24 10:04 Blood Pressure 112/72 08/27/24 10:04 Pulse Oximetry 98 08/27/24 10:04 Oxygen Delivery Method Room Air 08/27/24 10:04 MDM - Abdominal Pain MDM Narrative Medical decision making narrative: This patient had severe abdominal pain that was crampy last evening. She has not had any pain since then and arrives here with normal vital signs. She is here essentially to have us check her at 11 weeks gestation. I did use bedside ultrasound to see an intrauterine with normal heart activity. She is reassured with these results and is okay to be discharged home to resume current plans. Discharge Plan Discharge Clinical Impression: Abdominal pain during Patient Disposition: Home, Self-Care Condition: Improved Additional Instructions: Continue current plans. Follow up with MD return if worsening. Follow Up/Referrals: Gina Zazueta MD [Primary Care Provider, Occupational Medicine] Stand Alone Forms: [place] [facility] Info Instructions Procedures Ultrasound Other exam #1: Anatomical areas examined: at 11.5 weeks gestation. Indications: Abdominal pain Exam type: focused emergency ultrasound Description/findings: Normal intrauterine with heart activity. Impression: Normal exam at 11 weeks gestation.
--- OUTSIDE RECORDS SUMMARY | 2024-08-27 11:01 | XMS_ITS | Clinical Summary ---
[facility] Address [id number] [address] Care Team Providers Care Manager Development Name Role Phone Unavailable Primary Care Provider Unavailabl e Source Comments You are receiving this document as you are listed as the primary care provider,follow-up provider, or the patient has been referred to you for consultation.This is in compliance with the Medicare andMedicaid EHR Incentive Program,which states Providers who transition their patient to another setting of careor provider of care or refers their patient to another provider of care shouldprovide summary care record for each transition of care or referral. [facility] Allerg[facility] Active Allergy Reactions Criticality Noted Date Comments Dextromethorphan Confusion,Headache,N ausea And Vomiting,Respiratory Distress High 11/13/2015 Heart palpitations Chills Heart palpitations Gluten Meal Gastrointestinal 08/13/2021 Seafood Hives High 03/15/2018 Medications ferrous sulfate (AKA IRON SULFATE) 325 (65 Fe) MG enteric coated tablet Take by mouth. 08/07/2021 Active FLUoxetine (PROZAC) 40 MG capsule Take 1 Capsule by mouth daily. 04/22/2021 Active 27-0.8 MG tablet Take 1 Tablet by mouth daily. Active dexamethasone (DECADRON) 2 MG tablet 10 mg today and in 4 days 10 Tablet 08/13/2021 Active Active Problems No known active problems Social History Tobacco Use Types Packs/Day Years Used Date Smoking Tobacco: Never Smokeless Tobacco: Never Comments Unknown Sex and Gender Information Value Date Recorded Sex Assigned at Not on file Legal Sex Female 9:42 AM CDT Gender Identity Not on file Sexual Orientation Not on file Last Filed Vital Signs Vital Sign Reading Time Taken Comments Blood Pressure 99/60 08/13/2021 12:00 PM CDT Pulse 80 08/13/2021 12:00 PM CDT Temperature 36.8 C (98.2 F) 08/13/2021 12:00 PM CDT Respiratory Rate 16 08/13/2021 12:00 PM CDT Oxygen Saturation 100% 08/13/2021 12:00 PM CDT Inhaled Oxygen Concentration - - Weight - - Height - - Body Mass Index - - Plan of Treatment Health Maintenance Due Date Last Done Comments Cervical Cancer Screening Due 1992 Hep C Screening (Preventive Services) 1992 HIV Screening (Preventive Services) 2008 Adult Preventive Visit 2010 HepB Vaccine (1) 09/14/2011 COVID-19 Vaccine (3 - season) 2023 04/17/2020, 03/26/2020 Influenza Vaccine (Season Ended) 2024 01/04/2020, 01/10/2019, 01/12/2018, Additional history exists DTaP/Tdap/Td Vaccine (3 - Tdap) 08/08/2031 08/07/2021, 04/28/2018 Zoster/Shingles Vaccine (1 of 2) 2042 HPV Vaccine Aged Out No longer eligi ble based on patient's age to complete this topic HepA Vaccine Aged Out No longer eligi ble based on patient's age to complete this topic Hib Vaccine Aged Out No longer eligi ble based on patient's age to complete this topic IPV (Polio) Vaccine Aged Out No longe r eligible based on patient's age to complete this topic MCV4 Vaccine Aged Out No longer eligi ble based on patient's age to complete this topic Meningococcal B Vaccine Aged Out No l onger eligible based on patient's age to complete this topic Pneumococcal Vaccine Aged Out No long er eligible based on patient's age to complete this topic Insurance [employer]
== END 2024-08-27 11:00 | disposition home or self-care (01) ==
PROVIDERS: Emergency Provider Emergency Medicine Emergency Medical Services; PCP Preventive Medicine Occupational Medicine
DX: R10.9 Unspecified abdominal pain (principal); Z3A.11 11 weeks gestation of pregnancy
CPT/HCPCS: 76815; 99283; 99284